=== PATIENT | female | born 1970 | race Caucasian/White ===

== ENCOUNTER 2021-05-24 12:04 | Emergency (ER) | payer OTHER ==
[2021-05-24 12:17] VITALS: BP 127/66; PULSE 73; TEMP 98.4; BMI 33.4
[2021-05-24] MEDS ORDERED: ACETAMINOPHEN 500 MG TABLET (FP) PO ONE (18:49)
[2021-05-24] MEDS ORDERED: LIDOCAINE 5% TOPICAL PATCH TP ONE (18:50)
[2021-05-24] MEDS ORDERED: METHOCARBAMOL 500 MG TABLET PO ONE (20:12)
[2021-05-24] MEDS ORDERED: LIDOCAINE 5% TOPICAL PATCH ONE (20:12)
[2021-05-24] MEDS ORDERED: ACETAMINOPHEN 325 MG TABLET (FP) ONE (20:12)
[2021-05-24] MEDS ORDERED: METHOCARBAMOL 500 MG TABLET ONE (20:14)
[2021-05-24] MEDS ORDERED: LIDOCAINE PATCH REMOVAL MC SCH (22:00)
== END 2021-05-24 20:48 | disposition home or self-care (01) ==
LOC: JER 12:04
DX: S09.90XA Unspecified injury of head, initial encounter (principal); Y07.03 Male partner, perpetrator of maltreatment and neglect
CPT/HCPCS: 70450-TC; 70480-TC; 71046-TC-FY; 71111-TC-FY; 72128-TC; 73030-TC-RT-FY; 73070-TC-RT-FY; 73110-TC-RT-FY; 73130-TC-RT-FY; 84703; 99285-25

== ENCOUNTER 2021-05-24 23:40 | Inpatient (IN) | payer OTHER ==
[2021-05-25] MEDS ORDERED: BISMUTH SUBSALICYLATE 524 MG/30 ML PO PRN (00:32)
[2021-05-25] MEDS ORDERED: MAG HYDROX/AL HYDROX/SIMETH 30 ML UNIT-DOSE CUP PO PRN (00:32)
[2021-05-25] MEDS ORDERED: DICYCLOMINE HCL 10 MG CAPSULE PO PRN (00:32)
[2021-05-25] MEDS ORDERED: MAGNESIUM HYDROX 2400MG/30ML ORAL SUSPENSION 30 ML CUP PO PRN (00:32)
[2021-05-25] MEDS ORDERED: MAGNESIUM CITRATE 300 ML BOTTLE PO PRN (00:32)
[2021-05-25] MEDS ORDERED: P-EPHED 60MG/TRIPROLIDI 2.5MG TABLET PO PRN (00:32)
[2021-05-25] MEDS ORDERED: MENTHOL/PHENOL 1 EACH UD MM PRN (00:32)
[2021-05-25] MEDS ORDERED: ONDANSETRON *ODT* 4 MG TABLET SL PRN (00:32)
[2021-05-25] MEDS ORDERED: ACETAMINOPHEN 325 MG TABLET (FP) PO PRN ×2 (00:32)
[2021-05-25] MEDS ORDERED: LOPERAMIDE HCL 2 MG CAPSULE PO PRN (00:32)
[2021-05-25] MEDS ORDERED: IBUPROFEN 400 MG TABLET (FP) PO PRN (00:32)
[2021-05-25] MEDS ORDERED: guaiFENesin 200 MG/10 ML 10 ML UNIT-DOSE CUPS PO PRN (00:32)
[2021-05-25 03:52] VITALS: BMI 33.4
[2021-05-25] MEDS: hydrOXYzine PAMOATE 25 MG CAPSULE (FP) PO PRN ×4 (04:25→22:19)
[2021-05-25] MEDS: METHOCARBAMOL 500 MG TABLET PO PRN ×2 (04:25→18:33)
[2021-05-25] MEDS ORDERED: hydrOXYzine PAMOATE 25 MG CAPSULE (FP) PO ONE (04:27)
[2021-05-25] MEDS ORDERED: METHOCARBAMOL 500 MG TABLET ONE (04:27)
[2021-05-25] MEDS ORDERED: ALBUTEROL SO4 HFA INHALER IH PRN (06:50)
[2021-05-25] MEDS: PRENATAL VITAMINS W/ FOLIC ACID TABLET (FP) PO SCH (10:31)
[2021-05-25] MEDS: LIDOCAINE 5% TOPICAL PATCH TP SCH (10:31)
[2021-05-25] MEDS: SERTRALINE HCL 25 MG TABLET (FP) PO SCH (11:37)
[2021-05-25] MEDS ORDERED: LORazepam 2 MG TABLET PO ONE (12:32)
[2021-05-25] MEDS ORDERED: LORazepam 1 MG TABLET PO PRN (12:32)
[2021-05-25] MEDS ORDERED: ONDANSETRON *ODT* 4 MG TABLET SL ONE (12:38)
[2021-05-25 14:14] LABS: HEMATOCRIT 37.2 % (32.4-45.2); HEMOGLOBIN 12.1 GM/dL (10.7-15.3); MCH 26.9 pg (25.7-33.7); MCHC 32.6 g/dl (32.0-36.0); MEAN CELL VOLUME 82.6 fl (80-96); MEAN PLT VOLUME 10.1 fl (7.5-11.1); PLATELET COUNT 203 10^3/uL (134-434); RDW 15.1 % (11.6-15.6); WHITE BLOOD COUNT 5.6 K/mm3 (4.0-10.0)
[2021-05-25 14:18] LABS: CALCIUM 8.7 mg/dL (8.5-10.1)
[2021-05-25 14:19] LABS: ALBUMIN 3.2 g/dl (3.4-5.0); BLOOD UREA NITROGEN 7.3 mg/dL (7-18)
[2021-05-25 14:22] LABS: CREATININE 0.5 mg/dL (0.55-1.3)
[2021-05-25 14:23] LABS: BILIRUBIN,TOTAL 0.6 mg/dL (0.2-1); TOT PROT 6.2 g/dl (6.4-8.2)
[2021-05-25 15:15] LABS: HIV INTERPRETATION NEGATIVE (NEGATIVE)
[2021-05-25] MEDS: LORazepam 2 MG TABLET PO SCH ×2 (18:32→22:20)
[2021-05-25] MEDS ORDERED: MELATONIN 5 MG TABLETS PO SCH (22:00)
[2021-05-25] MEDS: LIDOCAINE PATCH REMOVAL MC SCH (22:14)
[2021-05-25] MEDS: THIAMINE HCL 100 MG TABLET (FP) PO SCH (22:19)
[2021-05-25] MEDS: traZODone HCL 50 MG TABLET (FP) PO SCH (22:19)
[2021-05-26] MEDS: LORazepam 2 MG TABLET PO SCH ×4 (05:51→22:27)
[2021-05-26] MEDS: SERTRALINE HCL 25 MG TABLET (FP) PO SCH (10:17)
[2021-05-26] MEDS: METHOCARBAMOL 500 MG TABLET PO PRN ×2 (10:17→17:13)
[2021-05-26] MEDS: PRENATAL VITAMINS W/ FOLIC ACID TABLET (FP) PO SCH (10:17)
[2021-05-26] MEDS: hydrOXYzine PAMOATE 25 MG CAPSULE (FP) PO PRN ×2 (10:17→17:13)
[2021-05-26] MEDS: LIDOCAINE 5% TOPICAL PATCH TP SCH (10:18)
[2021-05-26 14:08] LABS: SARS-CoV-2 NAA Not Detected (Not Detected)
[2021-05-26] MEDS: THIAMINE HCL 100 MG TABLET (FP) PO SCH (22:27)
[2021-05-26] MEDS: LIDOCAINE PATCH REMOVAL MC SCH (22:27)
[2021-05-26] MEDS: traZODone HCL 50 MG TABLET (FP) PO SCH (22:27)
[2021-05-27] MEDS: LORazepam 1 MG TABLET PO SCH ×4 (05:53→22:23)
[2021-05-27] MEDS: hydrOXYzine PAMOATE 25 MG CAPSULE (FP) PO PRN ×4 (05:55→22:24)
[2021-05-27] MEDS: PRENATAL VITAMINS W/ FOLIC ACID TABLET (FP) PO SCH (10:22)
[2021-05-27] MEDS: SERTRALINE HCL 25 MG TABLET (FP) PO SCH (10:22)
[2021-05-27] MEDS: METHOCARBAMOL 500 MG TABLET PO PRN (10:23)
[2021-05-27] MEDS: LIDOCAINE 5% TOPICAL PATCH TP SCH (10:23)
[2021-05-27 14:08] LABS: SARS-CoV-2 NAA Not Detected (Not Detected)
[2021-05-27] MEDS: traZODone HCL 50 MG TABLET (FP) PO SCH (22:22)
[2021-05-27] MEDS: THIAMINE HCL 100 MG TABLET (FP) PO SCH (22:23)
[2021-05-27] MEDS: LIDOCAINE PATCH REMOVAL MC SCH (22:24)
[2021-05-28] MEDS ORDERED: LORazepam 0.5 MG TABLET PO PRN
[2021-05-28] MEDS: LORazepam 0.5 MG TABLET PO SCH ×4 (06:58→22:23)
[2021-05-28] MEDS: LIDOCAINE 5% TOPICAL PATCH TP SCH (11:22)
[2021-05-28] MEDS: SERTRALINE HCL 25 MG TABLET (FP) PO SCH (11:23)
[2021-05-28] MEDS: hydrOXYzine PAMOATE 25 MG CAPSULE (FP) PO PRN ×2 (11:23→22:23)
[2021-05-28] MEDS: PRENATAL VITAMINS W/ FOLIC ACID TABLET (FP) PO SCH (11:24)
[2021-05-28] MEDS: METHOCARBAMOL 500 MG TABLET PO PRN (22:22)
[2021-05-28] MEDS: THIAMINE HCL 100 MG TABLET (FP) PO SCH (22:22)
[2021-05-28] MEDS: traZODone HCL 50 MG TABLET (FP) PO SCH (22:23)
[2021-05-28] MEDS: LIDOCAINE PATCH REMOVAL MC SCH (22:23)
[2021-05-29] MEDS ORDERED: LORazepam 0.5 MG TABLET PO ONE (05:00)
[2021-05-29] MEDS: PRENATAL VITAMINS W/ FOLIC ACID TABLET (FP) PO SCH (09:51)
[2021-05-29] MEDS: METHOCARBAMOL 500 MG TABLET PO PRN (09:51)
[2021-05-29] MEDS: SERTRALINE HCL 25 MG TABLET (FP) PO SCH (09:51)
[2021-05-29] MEDS: hydrOXYzine PAMOATE 25 MG CAPSULE (FP) PO PRN (09:51)
[2021-05-29] MEDS: LIDOCAINE 5% TOPICAL PATCH TP SCH (09:52)
[2021-05-29 11:53] VITALS: BP 108/50; PULSE 95; TEMP 97.3
== END 2021-05-29 12:55 | disposition other institution (70) | DRG 775 ==
LOC: YASAS 23:40 → Y6N 05-25 01:10
PROVIDERS: ADMIT Allergy & Immunology; ATTEND Allergy & Immunology
PROC: HZ2ZZZZ Detoxification Services for Substance Abuse Treatment (ICD-10-PCS; principal; 2021-05-25)
DX: F10.230 Alcohol dependence with withdrawal, uncomplicated (principal); F10.280 Alcohol dependence with alcohol-induced anxiety disorder; F10.24 Alcohol dependence with alcohol-induced mood disorder; F19.24 Other psychoactive substance dependence with psychoactive substance-induced mood disorder; F41.8 Other specified anxiety disorders; F32.A Depression, unspecified; F43.10 Post-traumatic stress disorder, unspecified; F42.9 Obsessive-compulsive disorder, unspecified; I27.20 Pulmonary hypertension, unspecified; J45.909 Unspecified asthma, uncomplicated; D64.9 Anemia, unspecified; K44.9 Diaphragmatic hernia without obstruction or gangrene; T74.11XA Adult physical abuse, confirmed, initial encounter; Y04.8XXA Assault by other bodily force, initial encounter; Y07.03 Male partner, perpetrator of maltreatment and neglect; Z98.84 Bariatric surgery status; Z88.0 Allergy status to penicillin
CPT/HCPCS: 36415; 80053; 85027; 86780; 87389; C9803; Q0162; U0003; U0005